=== PATIENT | female | born 1950 | race Caucasian/White ===

== ENCOUNTER 2019-05-29 18:01 | Inpatient (IN) | payer MEDICARE ==
--- NOTE | 2019-05-29 21:15 | ED ---
Lower Extremity - HPI Summary HPI Summary: Patient complains of left lower extremity numbness and difficulty ambulation 2 weeks, right-sided cheek numbness 2 weeks, and "sores" to left breast 1 year. Denies fever, cough, sore throat, CP, SOB, N/3/D, abdominal pain, change in urine, change in BM. Patient has not seen PCP in 4 years, denies medical history. - History of Current Complaint Chief Complaint: EDGeneral Stated Complaint: NUMBNESS ON RT SIDE FACE AND BOTH LEGS PER PT Time Seen by Provider: 05/29/19 21:13 Hx Obtained From: Patient Mechanism Of Injury: Unknown Onset/Duration: Weeks Severity Initially: Severe Severity Currently: Severe Pain Intensity: 8 Pain Scale Used: 0-10 Numeric Timing: Constant Location: Is Discrete @ Character Of Pain: Dull, Aching Associated Signs And Symptoms: Positive: Negative Aggravating Factor(s): Standing, Ambulation Able to Bear Weight: Yes - Allergies/Home Medications Allergies/Adverse Reactions: Allergies Allergy/AdvReac Type Severity Reaction Status Date / Time Penicillins Allergy GI Upset Verified 05/29/19 18:07 PMH/Surg Hx/FS Hx/Imm Hx Endocrine/Hematology History: Denies: Hx Anticoagulant Therapy Cardiovascular History: Denies: Hx Pacemaker/ICD History: Denies: Hx Dialysis Sensory History: Denies: Hx Eye Prosthesis Opthamlomology History: Denies: Hx Legally Blind EENT History: Denies: Hx Deafness Neurological History: Denies: Hx Dementia Infectious Disease History: No Infectious Disease History: Denies: Traveled Outside the [place] in Last 30 Days - Family History Known Family History: Positive: Non-Contributory - Social History Alcohol Use: Occasionally Hx Substance Use: No Hx Tobacco Use: No Review of Systems Constitutional: Negative Eyes: Negative ENT: Negative Cardiovascular: Negative Respiratory: Negative Gastrointestinal: Negative Genitourinary: Negative Musculoskeletal: Other Skin: Other Positive: Weakness Psychological: Normal All Other Systems Reviewed And Are Negative: Yes Physical Exam - Summary Physical Exam Summary: Patient has week use of left lower extremity when ambulating. Decreased sensation on right cheek. Left breast as inverted nipple with extensive deformity of left breast tissue. Hard mass noted. Patient is weak in bilateral lower extremities, Neuro exam otherwise normal. Triage Information Reviewed: Yes Vital Signs On Initial Exam: Initial Vitals Temp Pulse Resp BP Pulse Ox 98.7 F 88 16 143/93 98 05/29/19 18:05 05/29/19 18:05 05/29/19 18:05 05/29/19 18:05 05/29/19 18:05 Vital Signs Reviewed: Yes Appearance: Positive: Well-Appearing Skin: Positive: Warm Head/Face: Positive: Normal Head/Face Inspection Eyes: Positive: Normal Neck: Positive: Supple Respiratory/Lung Sounds: Positive: Clear to Auscultation Cardiovascular: Positive: Normal Abdomen Description: Positive: Nontender Musculoskeletal: Positive: Normal Neurological: Positive: Normal Psychiatric: Positive: Normal AVPU Assessment: Alert - Angela Coma Scale Best Eye Response: 4 - Spontaneous Best Motor Response: 6 - Obeys Commands Best Verbal Response: 5 - Oriented Coma Scale Total: 15 Procedures - Sedation Patient Received Moderate/Deep Sedation with Procedure: No Diagnostics - Vital Signs Vital Signs Temp Pulse Resp BP Pulse Ox 05/29/19 20:44 98.3 F 78 18 109/71 98 05/29/19 18:05 98.7 F 88 16 143/93 98 - Laboratory Result Diagrams: 05/29/19 21:33 05/29/19 21:33 Lab Statement: Any lab studies that have been ordered have been reviewed, and results considered in the medical decision making process. Lower Extremity Course/Dx - Course Course Of Treatment: Patient complains of left lower extremity numbness and difficulty ambulation 2 weeks, right-sided cheek numbness 2 weeks, and "sores " to left breast 1 year. Denies fever, cough, sore throat, CP, SOB, N/3/D, abdominal pain, change in urine, change in BM. Patient has not seen PCP in 4 years, denies medical history. Vital signs within normal limits. Labs unremarkable. CT brain positive for lesion with central area of hyperdensity likely hemorrhage measuring 22 x 22 mm with surrounding vasogenic edema extending to the left occipital parietal and temporal lobes with mass effect on the posterior left ventricle with minimal 1 mm midline shift to the right likely representing primary versus secondary neoplastic process versus infection , and less likely infarct. Further evaluation with contrast-enhanced MR examination as recommended. CT chest abdomen and pelvis positive for a large mass with irregular margins and retraction of the nipple with surrounding skin thickness and multiple other small nodular densities surrounding the mass punctate focus of calcification within the mass. Lesion measures approximately 6.3 x 6.8 x 8.0 cm. Multiple left axillary enlarged lymph nodes, largest one is measuring about 3.02.0. Discussed patient with oncology Dr. Slade who recommended admission and further evaluation. - Diagnoses Provider Diagnoses: Brain edema, Breast lesion, Brain lesion, Liver lesion Discharge ED - Sign-Out/Discharge Documenting (check all that apply): Patient Departure - Discharge Plan Condition: Stable Disposition: ADMITTED TO [facility] Referrals: No Primary Care Phys,NOPCP [Primary Care Provider] - - Billing Disposition and Condition Condition: STABLE Disposition: Admitted to [facility]
[2019-05-29 21:43] LABS: ABS Basophils 0.1 10^3/ul (0-0.2); ABS Eosinophils 0.2 10^3/ul (0-0.6); ABS Lymphocytes 1.2 10^3/ul (1.0-4.8); ABS Monocytes 0.8 10^3/ul (0-0.8); ABS Neutrophils 6.5 10^3/ul (1.5-7.7); Eosinophil % 2.1 %; Hematocrit 44 % (35-47); Hemoglobin 14.7 g/dL (12.0-16.0); Lymphocyte % 14.1 %; Mean Corpuscular HGB Conc 34 g/dL (31-36); Mean Corpuscular Hemoglobin 28 pg (27-31); Mean Corpuscular Volume 84 fL (80-97); Mean Platelet Volume 8.4 fL (7.4-10.4); Platelet Count 253 10^3/uL (150-450); Red Cell Distribution Width 15 % (10-15); White Blood Count 8.8 10^3/uL (3.5-10.8)
[2019-05-29 21:49] LABS: INR 1.06 (0.82-1.09)
[2019-05-29 22:05] LABS: Albumin 4.4 g/dL (3.2-5.2); Albumin/Globulin Ratio 1.9 (1-3); BUN/Creatinine Ratio 21.7 (8-20); C Reactive Protein 2.81 mg/L (<8.01); Calcium 9.7 mg/dL (8.6-10.3); EGFR African American 82.2 (>60); Globulin 2.3 g/dL (2-4); Magnesium 2.3 mg/dL (1.9-2.7); Total Bilirubin 0.6 mg/dL (0.2-1.0); Total Protein 6.7 g/dL (6.4-8.9)
[2019-05-29 22:16] LABS: TSH (Thyroid Stimulating Horm) 1.33 mcIU/mL (0.34-5.60)
[2019-05-29] MEDS ORDERED: Iohexol 300* (CONTRAST) 10 ML SDV IV ONE (22:18)
[2019-05-29] MEDS ORDERED: Dexamethasone IV* 4 MG/ML 5 ML VIAL (20 MG) IVPB ONE (23:50)
[2019-05-30] MEDS ORDERED: Enoxaparin(*) 40 MG/0.4 ML SYR SUBCUT SCH (05:00)
[2019-05-30 05:26] LABS: Urine Appearance Clear; Urine Bilirubin Negative (Negative); Urine Blood Negative (Negative); Urine Color Yellow; Urine Glucose Negative (Negative); Urine Ketones Trace (Negative); Urine Nitrite Negative (Negative); Urine Protein Negative (Negative); Urine Specific Gravity > 1.060 (1.010-1.030); Urine Urobilinogen Negative (Negative)
[2019-05-30 05:28] LABS: Urine Bacteria Absent (Absent); Urine Red Blood Cell Absent (Absent); Urine Squamous Epithelial Cell Present (Absent); Urine White Blood Cell Trace(0-5/hpf) (Absent)
[2019-05-30] MEDS: Dexamethasone IV* 4 MG/ML 1 ML (4 MG) IV SLOW PU SCH ×4 (06:49→23:44)
[2019-05-30] MEDS: NS 0.9% 1000 ML** 1,000 ML IV SCH ×2 (06:49→23:50)
--- NOTE | 2019-05-30 07:35 | HP ---
ADMISSION HISTORY AND PHYSICAL: DATE OF ADMISSION: 05/30/19 CHIEF COMPLAINT: Weakness and numbness. HISTORY OF PRESENT ILLNESS: This is a 68-year-old female who has not been to a doctor in over 3 years, who lives by herself, and for the last 1 year, she has noticed left breast redness which increased to a necrotic lesion, but she did not think much of it even though she felt that her left breast was a bit warm, but that was not the reason for coming to the ER. She stated for the last few weeks she has had numbness and severe pain on both lower extremity with pain being worse on the left lower extremity. She has also felt that her gait was unsteady and her right leg would not move properly and she also noticed some numbness at the right side of the face, and based on these neurological symptoms , she finally decided to come to the ER for further evaluation. She otherwise denies any other vision changes. Denies any chest pain, abdominal pain, nausea, vomiting, or diarrhea. No fever or chills. PAST MEDICAL HISTORY: She denies any medical problems or any previous surgical conditions. HOME MEDICATIONS: The patient is currently not taking any medications. ALLERGIES: The patient is documented to have allergies to PENICILLIN, which causes upset stomach. FAMILY HISTORY: Noncontributory at this point. SOCIAL HISTORY: She denied any smoking. She has had occasional alcohol. Denies any drug use. 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 Her next-of-kin is her sister, Trang, who is also the healthcare proxy and regarding code status she is considering to be a DNR, but does not want to finish writing a MOLST form until she discusses with her sister Trang. REVIEW OF SYSTEMS: A 14-point review of systems did not reveal any new information other than what is mentioned in the HPI. PHYSICAL EXAMINATION GENERAL: The patient is awake, alert, and oriented x3, did not appear to be in any acute respiratory distress. VITAL SIGNS: In the ER, BP was noted to be 110/58, heart rate 71, respiration rate 18, saturating 98% on room air, temperature 98 degrees Fahrenheit. HEAD AND NECK: Atraumatic, normocephalic. Bilateral pupils are reactive. Oral mucosa was moist. Neck: Supple. No jugular venous distention. LUNGS: Clear to auscultation bilaterally. No wheezing, rhonchi, or rales. HEART: S1, S2. Regular rate and rhythm. BREASTS: The patient's right breast appeared to be unremarkable, but the left breast was indurated with a large ulceration and retraction of nipple and some purulent-appearing liquid around the inflammatory changes and the necrotic area was noted on the left breast. ABDOMEN: Soft, nontender, nondistended. EXTREMITIES: The patient did have some tenderness on the left lower extremity. NEUROLOGICAL: The patient was able to move all 4 extremities with the exception of the right lower extremity. She was having difficulty coordinating and moving that extremity. DIAGNOSTIC STUDIES/LAB DATA: CBC was unremarkable. Coagulation profile unremarkable. Comprehensive metabolic panel unremarkable. Lactic acid normal. LFTs normal. TSH was normal. CT brain was read as a lesion in the central area of hyperdensity likely hemorrhage measuring 22 x 22 mm with surrounding vasogenic edema extending into the left occipitoparietal and temporal lobes with mass effect on the posterior left ventricle with minimal 1-mm midline shift to the right likely representing primary versus secondary neoplastic process versus infection and less likely infarct. Further evaluation with a contrast-enhanced MRI is recommended. CT chest showed a large mass with irregular margins and retractions of the nipple with surrounding skin thickness and multiple other small nodular densities surrounding the mass, punctate focus of calcification within the mass. Lesion measures 6.3 x 6.8 x 8.0 cm. Multiple left axillary enlarged lymph nodes, largest one measuring [address] abdomen and pelvis showed 4-mm low-attenuation area in the left lobe of the liver, too small to characterize. Followup is recommended given metastatic disease. Large exophytic mass arising from the uterus most likely represents a fibroid. IMPRESSION: This is a 68-year-old female with no significant past medical history, who has symptoms consistent with an inflammatory breast cancer for over a year, now came in with neurological symptoms including weakness and numbness, noted to have some vasogenic edema and central area of hyperdensity in the brain, considered to be a hemorrhage secondary to a mass, likely all from breast cancer. ASSESSMENT: 1. Weakness and numbness secondary to brain metastasis from a breast cancer with vasogenic edema. For now, we will start the patient on dexamethasone to decrease the vasogenic edema. We will get physical therapy evaluation and consult Oncology to prognosticate the patient. The patient herself seems to be more interested in discussing her case with palliative care doctor. She was requesting to speak with Dr. Ida Velasco, apparently a local palliative care and hospice physician, who is close to retiring and she wanted the doctor before her shelter becomes official as she is considering the route of palliation, but she still is open to discussing her prognosis with an oncologist. 2. DVT prophylaxis. Given her lower extremity pain, an SCD would be contraindicated and the fact that she had hyperdensities thought to be hemorrhagic in the brain, Lovenox would be contraindicated as well. 3. Code status. The patient is considering signing a MOLST form with the idea of being DNR, but she wanted to wait until she discusses her case with the sister. For now she still wants to be DNR, but is waiting on the sister to sign the actual papers. So, we will reevaluate the code status in the morning, healthcare proxy being her sister Trang. [id number]/[facility] #: [id number] DERIC
[2019-05-30] MEDS ORDERED: Morphine INJ* 2 MG/ML 1 ML SYRINGE (TWO MG - NEW SYRINGE VERSION) IV ONE (08:00)
[2019-05-30] MEDS ORDERED: Gadoteridol* (CONTRAST) 279.3 MG/ML 10 ML IV ONE (12:33)
--- NOTE | 2019-05-30 14:38 | CONSULT ---
Consultation - Reason for Consultation Reason for Consultation: likely metastatic breast cancer Ordering Provider: Heraclio Marroquin Chief Complaint: 68 yo F without medical history, but also isolated from medical care with likely metastatic breast cancer. Ashley first noticed a nodule in her left breast 3 years ago. 2 years ago she fell and hit her breast and the nodule "broke open". It has continued to grow and ulcerate. It is not particularly painful nor malodorous and she did not want to "put anyone out" with her health issues and so she continued to ignore it. 2-3 weeks ago she began noticing trouble lifting her right leg as easily over her bike. Over the last week or two her gait became unsteady. Finally she started developing left buttock and facial numbness prompting her to come to the ER. She does report some lower back apin but not severe. Here she had CT head with large left temporal lobe lesion. She was started on IV dexamethasone and admitted for further evaluation. CT C/A/P did not reveal any lung lesions, left breast mass and associated axillary adenopathy, a 4 mm liver nodule, and a fibroid uterus. She reports poor appetite over the last several weeks but no clear weight loss. She has a son that she is estranged from and a sister who lives 1 hour away. She denies bowel or bladder incontinence. Allergies/Medications Medication: Dexamethasone Sodium Phosphate (Decadron Iv*) 4 mg IV SLOW PU Q6H [facility] Last Admin: 05/30/19 13:31 Dose: 4 mg Sodium Chloride (Ns 0.9% 1000 Ml) 1,000 mls @ 125 mls/hr IV PER RATE [facility] Last Admin: 05/30/19 06:49 Dose: 125 mls/hr Allergies/Adverse Reactions: Allergies Allergy/AdvReac Type Severity Reaction Status Date / Time Penicillins Allergy GI Upset Verified 05/29/19 18:07 History - Past Medical History Other History: denies PMH or prior sugeries - Family History Other Family History: denies - Social History Hx Alcohol Use: No Hx Tobacco Use: No Marital Status: Single Review of Systems - Review of Systems General Comments: full 14 pt ROS remarkable as per HPI and otherwise negative. Physical Exam - Physical Exam Physical Examination: Vital Signs Temp Pulse Resp BP Pulse Ox 98 F 65 18 136/67 98 05/30/19 05:40 05/30/19 05:40 05/30/19 10:38 05/30/19 05:40 05/30/19 05:40 pleasant, lying flat, in nad perr eomi op moist cta bl s1 s2 nl soft nt +Bs trace LE edema large fungating left breast mass with satellite skin lesions +left axillary adenopathy 2+/5 RLE. 4/5 LLE strength, did not ambulate Results - Lab Results Lab Results: 05/29/19 05/29/19 05/29/19 21:33 21:33 21:33 WBC 8.8 RBC 5.20 H Hgb 14.7 Hct 44 MCV 84 MCH 28 MCHC 34 RDW 15 Plt Count 253 MPV 8.4 Neut % (Auto) 73.7 Lymph % (Auto) 14.1 [place] % (Auto) 9.0 Eos % (Auto) 2.1 Baso % (Auto) 1.1 Absolute Neuts (auto) 6.5 Absolute Lymphs (auto) 1.2 Absolute Monos (auto) 0.8 Absolute Eos (auto) 0.2 Absolute Basos (auto) 0.1 Absolute Nucleated RBC 0.0 Nucleated RBC % 0.0 INR (Anticoag Therapy) 1.06 Sodium 137 Potassium 4.0 Chloride 102 Carbon Dioxide 26 Anion Gap 9 BUN 18 Creatinine 0.83 Est GFR ( Amer) 82.2 Est GFR (Non-Af Amer) 68.0 BUN/Creatinine Ratio 21.7 H Glucose 96 Lactic Acid Calcium 9.7 Magnesium 2.3 Total Bilirubin 0.60 AST 35 ALT 30 Alkaline Phosphatase 50 C-Reactive Protein 2.81 Total Protein 6.7 Albumin 4.4 Globulin 2.3 Albumin/Globulin Ratio 1.9 TSH 1.33 Urine Color Urine Appearance Urine pH Ur Specific [place] Urine Protein Urine Ketones Urine Blood Urine Nitrate Urine Bilirubin Urine Urobilinogen Ur Leukocyte Esterase Urine WBC (Auto) Urine RBC (Auto) Ur Squamous Epith Cells Urine Bacteria Urine Glucose 05/29/19 05/30/19 21:33 04:50 WBC RBC Hgb Hct MCV MCH MCHC RDW Plt Count MPV Neut % (Auto) Lymph % (Auto) [place] % (Auto) Eos % (Auto) Baso % (Auto) Absolute Neuts (auto) Absolute Lymphs (auto) Absolute Monos (auto) Absolute Eos (auto) Absolute Basos (auto) Absolute Nucleated RBC Nucleated RBC % INR (Anticoag Therapy) Sodium Potassium Chloride Carbon Dioxide Anion Gap BUN Creatinine Est GFR ( Amer) Est GFR (Non-Af Amer) BUN/Creatinine Ratio Glucose Lactic Acid 0.8 Calcium Magnesium Total Bilirubin AST ALT Alkaline Phosphatase C-Reactive Protein Total Protein Albumin Globulin Albumin/Globulin Ratio TSH Urine Color Yellow Urine Appearance Clear Urine pH 5.0 Ur Specific [place] > 1.060 H Urine Protein Negative Urine Ketones Trace A Urine Blood Negative Urine Nitrate Negative Urine Bilirubin Negative Urine Urobilinogen Negative Ur Leukocyte Esterase Trace A Urine WBC (Auto) Trace(0-5/hpf) Urine RBC (Auto) Absent Ur Squamous Epith Cells Present A Urine Bacteria Absent Urine Glucose Negative Assessment and Plan Impression: 68 yo F who has secluded herself from health care with a large, fungating breast mass growing over several years p/w right sided weakness, and left buttock numbness and found to have a OVERHAULER lesion concerning for metastatic disease. On exam I am also concerned for cord compression and have taken the liberty of ordering a stat brain MRI as well as thoracic and LS spines. I have discussed this with Ashley at length. Though she does take a minimalist approach overall to her health care,she is very interested in palliative therapy , and would be willing to entertain other therapies (like hormonal) if the goal was palliation. I have asked Dr. Robin to come do a bedside FNA of her breast to expidite her diagnosis and care, and have reviewed her case with Dr. Arita given her neurological compromise. She has specifically requested to discuss with Dr. Velasco palliative options and I have placed a call to her. -please continue steroids as you are doing we will continue to follow closely with you.
--- NOTE | 2019-05-30 22:40 | RADMED ---
CC: Dr. Sousa's office at [facility].* RADIATION ONCOLOGY INPATIENT CONSULTATION NOTE: DATE OF SERVICE: 05/30/19. DIAGNOSIS: Metastatic breast cancer AJCC stage IV. Performance status ECOG 3. REFERRING PHYSICIAN: Dr. Sousa. HISTORY OF PRESENT ILLNESS: Ashley Arreguin is a 68-year-old woman with a history of increasing left breast irregularity fungating mass over the past couple of years. She developed low back pain recently, which increased to leg weakness, leading her to come to medical attention. She was evaluated through the [facility] emergency department with MRI scan of the brain on 10/12 identifying large left sided in the left temporal occipital parietal region with mass effect. Fine needle aspiration of the left breast performed today, 05/30/19 confirms intermediate to high grade ductal adenocarcinoma. MRI of the brain also 05/30/19, further characterizes the large left-sided brain metastasis with invasion to the cerebellar vermis and suggestion of leptomeningeal dissemination as well as an additional right temporal metastasis around 1 cm. Lumbar spine MRI shows studding along the cauda equina. She is referred for emergent radiation oncology consultation for newly diagnosed metastatic breast cancer. PAST MEDICAL HISTORY: None reported. MEDICATIONS: At home, none. ALLERGIES: PENICILLIN. FAMILY HISTORY: Noncontributory. SOCIAL HISTORY: She is a nonsmoker. REVIEW OF SYSTEMS: As in the history of present illness, otherwise complete review of systems is asked to the patient without the additional significant findings. PHYSICAL EXAM: General: She is awake, alert, oriented, and in no acute distress. Vital Signs: Temperature 97.9, pulse rate 70, respiratory rate 18, oxygen saturation 94% on room air, blood pressure 149/78. HEENT: Normocephalic atraumatic, sclerae anicteric. Neck: Supple. Full range of motion, midline trachea. No masses palpable in the neck or thyroid. Lungs: With symmetric air entry bilaterally. Cardiovascular: S1, S2. Breasts: Irregular mass over the left breast fungating. Neurologic: Cranial nerves: Pupils equal, round and reactive to light. Extraocular movements intact. Facies appear symmetric. Sensation is diminished in the lower extremities. Global weakness, more pronounced in the lower extremities, right greater than left. PATHOLOGY AND RADIOLOGY: Reviewed, as in the history of present illness. 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 She has been started on dexamethasone, and I reviewed the logistics and rationale for consideration of an emergent palliative radiation therapy to the whole brain and lumbosacral spine. I explained the risks, benefits and alternatives for treatment as well as the acute and long-term frequent and uncommon toxicities. I did answer the patient's questions to the best of my ability. 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 She is inclined to proceed with radiation therapy as discussed, and did sign informed consent. She will undergo CT simulation to facilitate treatment planning. For her situation, I recommended 3000 cGy per fraction to the whole brain and lumbosacral spine, tentative treatment start date today, 05/30/19. Thank you for giving me the opportunity to participate in the care of this very pleasant patient. [id number]/[facility] #: [id number] MTDD
[2019-05-30] MEDS ORDERED: Acetaminophen ADULT LIQ* 650 MG/20.3 ML UDC PO PRN (22:44)
[2019-05-30] MEDS: traMADol TAB* 50 MG PO PRN (23:44)
[2019-05-31 05:43] LABS: ABS Lymphocytes 0.6 10^3/ul (1.0-4.8); ABS Monocytes 0.5 10^3/ul (0-0.8); ABS Neutrophils 12.3 10^3/ul (1.5-7.7); Hematocrit 39 % (35-47); Hemoglobin 13.1 g/dL (12.0-16.0); Lymphocyte % 4.1 %; Mean Corpuscular HGB Conc 33 g/dL (31-36); Mean Corpuscular Hemoglobin 28 pg (27-31); Mean Corpuscular Volume 84 fL (80-97); Mean Platelet Volume 8.9 fL (7.4-10.4); Platelet Count 237 10^3/uL (150-450); Red Blood Count 4.68 10^6 /uL (3.70-4.87); Red Cell Distribution Width 15 % (10-15); White Blood Count 13.3 10^3/uL (3.5-10.8)
[2019-05-31 06:06] LABS: Calcium 8.7 mg/dL (8.6-10.3); EGFR Non-African American 91.7 (>60); Potassium 4.1 mmol/L (3.5-5.0)
[2019-05-31] MEDS: Dexamethasone IV* 4 MG/ML 1 ML (4 MG) IV SLOW PU SCH ×3 (06:21→17:05)
--- NOTE | 2019-05-31 10:28 | CONSULT ---
Palliative / Hospice Consult Ordering Provider: Magda Sousa - Subjective Code Status: DNR Advance Directives Location: In Chart [facility] Part A Completed: Yes - [facility]:: Yes - all comfort/palliative measures HCP Completed: Yes - sister Trang Ly - History or Present Illness History or Present Illness: This 68 year old woman has had a palpable left breast mass growing for 3 years, and has noted progressive fatigue for at least 2 years, but has been reluctant to pursue any medical care. She has, however, been pursuing information and education about palliative interventions. She presented to the hospital when she had developed symptoms that needed alleviation. She has had numbness and pain in her legs, an unsteady gait, right leg numbness and right facial numbness progressing over the past few weeks. In the ER she was found to have a fungating 6.3 x 6.8 x 8 cm left breast mass with purulent discharge and surrounding nidular dinsities, and brain MRI revealed a 2.2 x 2.2 cm temporal occipital parietal mass on the left, with 1 cm midline shift to the right due to mass effect, and a 1 cm right temporal mass as well. Lumbar MRI revealed studding along the cauda equina. She has no significant intraabdominal findings. She was seen in consultation by Dr. Magda Sousa who reviewed the patient's options and suggested palliative consultation after FNA of the mass revealed a ductal adenocarcinoma, and Dr. Arita has initiated palliative radiation to the brain and lower spine, which the patient says will continue for about 10 days. She is currently not able to ambulate safely due to her right hemiplegia and incoordination. She also admits to some memory impairment and confusion. She reports that after initiation of dexamethasone and her first radiation treatment yesterday, her facial numbness seems somewhat alleviated. However, she still reports significant pain which has been only partly relieved with 50 mg tramadol. The patient lives alone in a mobile home near [place]. She has a sister, Trang Ly, who is her HCP and POA. She has 2 brothers with whom she is not close, one of which, in [place], has had treatment for prostate cancer. Her parents of cardiac disease, mother age 90 and father age 97. She has adequate savings to cover prolonged [facility]cc care. Lab Values: Abnormal Lab Results 05/31/19 05/31/19 04:30 04:41 WBC 13.3 H RBC 4.68 Hgb 13.1 Hct 39 MCV 84 MCH 28 MCHC 33 RDW 15 Plt Count 237 MPV 8.9 Neut % (Auto) 92.1 Lymph % (Auto) 4.1 Sac % (Auto) 3.8 Eos % (Auto) 0.0 Baso % (Auto) 0.0 Absolute Neuts (auto) 12.3 H Absolute Lymphs (auto) 0.6 L Absolute Monos (auto) 0.5 Absolute Eos (auto) 0.0 Absolute Basos (auto) 0.0 Absolute Nucleated RBC 0.0 Nucleated RBC % 0.0 Sodium 138 Potassium 4.1 Chloride 107 Carbon Dioxide 25 Anion Gap 6 BUN 16 Creatinine 0.64 Est GFR ( Amer) 111.0 Est GFR (Non-Af Amer) 91.7 BUN/Creatinine Ratio 25.0 H Glucose 122 H Calcium 8.7 Laboratory Last Values WBC 13.3 10^3/uL (3.5-10.8) H 05/31/19 04:30 RBC 4.68 10^6 /uL (3.70-4.87) 05/31/19 04:30 Hgb 13.1 g/dL (12.0-16.0) 05/31/19 04:30 Hct 39 % (35-47) 05/31/19 04:30 MCV 84 fL (80-97) 05/31/19 04:30 MCH 28 pg (27-31) 05/31/19 04:30 MCHC 33 g/dL (31-36) 05/31/19 04:30 RDW 15 % (10-15) 05/31/19 04:30 Plt Count 237 10^3/uL (150-450) 05/31/19 04:30 MPV 8.9 fL (7.4-10.4) 05/31/19 04:30 Neut % (Auto) 92.1 % 05/31/19 04:30 Lymph % (Auto) 4.1 % 05/31/19 04:30 Sac % (Auto) 3.8 % 05/31/19 04:30 Eos % (Auto) 0.0 % 05/31/19 04:30 Baso % (Auto) 0.0 % 05/31/19 04:30 Absolute Neuts (auto) 12.3 10^3/ul (1.5-7.7) H 05/31/19 04:30 Absolute Lymphs (auto) 0.6 10^3/ul (1.0-4.8) L 05/31/19 04:30 Absolute Monos (auto) 0.5 10^3/ul (0-0.8) 05/31/19 04:30 Absolute Eos (auto) 0.0 10^3/ul (0-0.6) 05/31/19 04:30 Absolute Basos (auto) 0.0 10^3/ul (0-0.2) 05/31/19 04:30 Absolute Nucleated RBC 0.0 10^3/ul 05/31/19 04:30 Nucleated RBC % 0.0 05/31/19 04:30 INR (Anticoag Therapy) 1.06 (0.82-1.09) 05/29/19 21:33 Sodium 138 mmol/L (135-145) 05/31/19 04:41 Potassium 4.1 mmol/L (3.5-5.0) 05/31/19 04:41 Chloride 107 mmol/L (101-111) 05/31/19 04:41 Carbon Dioxide 25 mmol/L (22-32) 05/31/19 04:41 Anion Gap 6 mmol/L (2-11) 05/31/19 04:41 BUN 16 mg/dL (6-24) 05/31/19 04:41 Creatinine 0.64 mg/dL (0.51-0.95) 05/31/19 04:41 Est GFR ( Amer) 111.0 (>60) 05/31/19 04:41 Est GFR (Non-Af Amer) 91.7 (>60) 05/31/19 04:41 BUN/Creatinine Ratio 25.0 (8-20) H 05/31/19 04:41 Glucose 122 mg/dL (70-100) H 05/31/19 04:41 Lactic Acid 0.8 mmol/L (0.5-2.0) 05/29/19 21:33 Calcium 8.7 mg/dL (8.6-10.3) 05/31/19 04:41 Magnesium 2.3 mg/dL (1.9-2.7) 05/29/19 21:33 Total Bilirubin 0.60 mg/dL (0.2-1.0) 05/29/19 21:33 AST 35 U/L (13-39) 05/29/19 21:33 ALT 30 U/L (7-52) 05/29/19 21:33 Alkaline Phosphatase 50 U/L (34-104) 05/29/19 21:33 C-Reactive Protein 2.81 mg/L (<8.01) 05/29/19 21:33 Total Protein 6.7 g/dL (6.4-8.9) 05/29/19 21:33 Albumin 4.4 g/dL (3.2-5.2) 05/29/19 21:33 Globulin 2.3 g/dL (2-4) 05/29/19 21:33 Albumin/Globulin Ratio 1.9 (1-3) 05/29/19 21:33 TSH 1.33 mcIU/mL (0.34-5.60) 05/29/19 21:33 Urine Color Yellow 05/30/19 04:50 Urine Appearance Clear 05/30/19 04:50 Urine pH 5.0 (5-9) 05/30/19 04:50 Ur Specific Icard > 1.060 (1.010-1.030) H 05/30/19 04:50 Urine Protein Negative (Negative) 05/30/19 04:50 Urine Ketones Trace (Negative) A 05/30/19 04:50 Urine Blood Negative (Negative) 05/30/19 04:50 Urine Nitrate Negative (Negative) 05/30/19 04:50 Urine Bilirubin Negative (Negative) 05/30/19 04:50 Urine Urobilinogen Negative (Negative) 05/30/19 04:50 Ur Leukocyte Esterase Trace (Negative) A 05/30/19 04:50 Urine WBC (Auto) Trace(0-5/hpf) (Absent) 05/30/19 04:50 Urine RBC (Auto) Absent (Absent) 05/30/19 04:50 Ur Squamous Epith Cells Present (Absent) A 05/30/19 04:50 Urine Bacteria Absent (Absent) 05/30/19 04:50 Urine Glucose Negative (Negative) 05/30/19 04:50 - Objective Active Medications: Acetaminophen (Tylenol Adult Liq*) 650 mg PO Q6H PRN PRN Reason: PAIN - MILD Dexamethasone Sodium Phosphate (Decadron Iv*) 4 mg IV SLOW PU Q6H [facility] Last Admin: 05/31/19 06:21 Dose: 4 mg Sodium Chloride (Ns 0.9% 1000 Ml) 1,000 mls @ 125 mls/hr IV PER RATE [facility] Last Admin: 05/30/19 23:50 Dose: 125 mls/hr Tramadol HCl (Ultram*) 50 mg PO Q6H PRN PRN Reason: PAIN - MODERATE Last Admin: 05/30/19 23:44 Dose: 50 mg Vital Signs: Vital Signs: Temp Pulse Resp BP Pulse Ox 98.1 F 69 20 137/62 93 05/31/19 07:15 05/31/19 07:15 05/31/19 07:15 05/31/19 07:15 05/31/19 07:15 Patient Weight: Weight 218 lb Intake and Output: Intake & Output 05/29/19 05/30/19 05/31/19 06/01/19 06:59 06:59 06:59 06:59 Intake Total 1973 Balance 1973 Weight 218 lb Intake: IV Fluids 1733 NS (0.9%) 1733 Oral 240 ADLs: Meal Record Start: 05/30/19 06: 16 Freq: DAILY@0900,1400,1800 Status: Active Protocol: Created 05/30/19 06:16 System (Rec: 05/30/19 06:16 System [id number]) Document 05/30/19 14:00 [id number] (Rec: 05/30/19 15:03 [id number] [id number]) Intake and Output Start: 05/29/19 18: 07 Freq: Status: Active Protocol: Created 05/29/19 18:07 System (Rec: 05/29/19 18:07 System [id number]) Intake and Output Start: 05/30/19 06: 16 Freq: DAILY@0600,1400,2200 Status: Active Protocol: Created 05/30/19 06:16 System (Rec: 05/30/19 06:16 System [email or web address]) Document 05/30/19 14:00 [id number] (Rec: 05/30/19 15:03 [id number] [email or web address]) Document 05/30/19 22:00 [id number] (Rec: 05/30/19 22:31 [id number] [email or web address]) Document 05/31/19 06:00 [id number] (Rec: 05/31/19 06:18 [id number] TELE-C13) Head: Symmetrical Eyes: No Scleral Icterus, PERRLA Ears/Nose/Mouth/Throat: NL Teeth, Lips, Gums Neck: NL Appearance and Movements; NL JVP, Trachea Midline Cardiovascular: NL Sounds; No Murmurs; No JVD Respiratory: Symmetrical Chest Expansion and Respiratory Effort Abdominal: NL Sounds; No Tenderness; No Distention, No Hepatosplenomegaly Extremities: No Clubbing, Cyanosis, - - 1-2 + pitting edema. Neurological: Alert and Oriented x 3 - Noticeable weakness right LE, DTR's symmetrical and intact, paresthesias bilat. 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 She has terminal disease and is aware that any measures would be non-curative. We had a long discussion about her goals of care, and she wishes above all else to maintain independence and maximal functional status during the time she has left. The radiation is a very reasonable course to attempt to maximize the function of her legs and to minimize her symptoms, and provide the best chance of continued ability to ambulate. The dexamethasone is also important to continue, and I spoke with Dr. Sousa who accepts the patient's desire to avoid conventional chemotherapy but would like to consider aromatase therapy if her hormone receptor assays suggest that she might benefit from it. Her main symptoms at this time are fatigue and pain. I note she has only had one dose of 50 mg tramadol here, and her pain is not maximally relieved. We attempt to keep pain levels at or less than 4/10. I will initiate a routine order for oxycodone ( especially since this a patient who is reluctant to "bother" people with requests) and this should be titrated upward as needed to control her pain. - Plan Consult Plan (MU): Hospice Plan: The patient and I completed a MOLST form, specifying palliative and comfort measures only. When the patient's course of radiation has been completed, she would like to be transferred to the [facility]. This is an environment with which she is familiar and quite enamored. I am hoping a bed will be available for her at the time that she is ready for discharge. With the patient' s consent, I called her HCP and POATrang, and updated her on the clinical situation and the patient's wishes for end-of-life care. She qualifies for hospice services on the basis of her metastatic ductal adenocarcinoma and her neurologic impairment due to brain and cauda equina metastatic disease. - Time On Unit Date of Evaluation: 05/31/19 Hospice Consult Time in: 08:30 Hospice Consult Time Out: 10:30 Hospice Consult Time Total: 120 > 50% of Time Spend In Counseling or Coordinating Care: Yes
[2019-05-31] MEDS: NS 0.9% 1000 ML** 1,000 ML IV SCH (11:14)
[2019-05-31] MEDS: Gabapentin CAP(*) 100 MG PO SCH ×2 (11:22→21:11)
[2019-05-31] MEDS: traMADol TAB* 50 MG PO PRN ×2 (11:23→21:12)
--- NOTE | 2019-05-31 11:46 | PN ---
Progress Note - Progress Note Date of Service: 05/31/19 SOAP: Subjective: [Patient reports that she is feeling a little better today and reassured by her decision to pursue palliative RT. She met with Dr Velasco today regarding palliative care and planning for Hospice. ] Objective: [ Vital Signs: Temp Pulse Resp BP Pulse Ox 98.1 F 69 18 137/62 93 05/31/19 07:15 05/31/19 07:15 05/31/19 11:23 05/31/19 07:15 05/31/19 07:15 Acetaminophen (Tylenol Adult Liq*) 650 mg PO Q6H PRN PRN Reason: PAIN - MILD Dexamethasone Sodium Phosphate (Decadron Iv*) 4 mg IV SLOW PU Q6H [facility] Last Admin: 05/31/19 11:20 Dose: 4 mg Gabapentin (Neurontin Cap(*)) 100 mg PO BID [facility] Last Admin: 05/31/19 11:22 Dose: 100 mg Sodium Chloride (Ns 0.9% 1000 Ml) 1,000 mls @ 125 mls/hr IV PER RATE [facility] Last Admin: 05/31/19 11:14 Dose: 125 mls/hr Oxycodone/Acetaminophen (Percocet 5/325 Tab*) 2 tab PO Q4H PRN PRN Reason: PAIN - SEVERE Tramadol HCl (Ultram*) 50 mg PO Q6H PRN PRN Reason: PAIN - MODERATE Last Admin: 05/31/19 11:23 Dose: 50 mg Laboratory Results - last 24 hr 05/31/19 05/31/19 04:30 04:41 WBC 13.3 H RBC 4.68 Hgb 13.1 Hct 39 MCV 84 MCH 28 MCHC 33 RDW 15 Plt Count 237 MPV 8.9 Neut % (Auto) 92.1 Lymph % (Auto) 4.1 [place] % (Auto) 3.8 Eos % (Auto) 0.0 Baso % (Auto) 0.0 Absolute Neuts (auto) 12.3 H Absolute Lymphs (auto) 0.6 L Absolute Monos (auto) 0.5 Absolute Eos (auto) 0.0 Absolute Basos (auto) 0.0 Absolute Nucleated RBC 0.0 Nucleated RBC % 0.0 Sodium 138 Potassium 4.1 Chloride 107 Carbon Dioxide 25 Anion Gap 6 BUN 16 Creatinine 0.64 Est GFR ( Amer) 111.0 Est GFR (Non-Af Amer) 91.7 BUN/Creatinine Ratio 25.0 H Glucose 122 H Calcium 8.7 Exam: Gen: pleasant and generally well appearing 68 yo female in NAD Resp: easy, unlabored breathing Breast: not examined today] Assessment: [This is a 68 yo female admitted with RLE weakness with a large fungating breast mass, along with a large brain met and drop mets to the cauda equina likely representing metastatic breast CA with biopsy pending.] Plan: [1. Metastatic carcinoma, likely breast in origin - plan to complete 10 fractions of palliative RT to the brain and lumbar spine, today is day 2 - cont dexamethasone - awaiting final pathology results - recommend more aggressive pain management (see Dr Velasco's consultation) Dispo: plan to complete 10 fractions of RT with transition to Hospice residence upon completion. Oncology will continue to follow along and will follow up with patient when final pathology results return.]
[2019-05-31] MEDS: Ondansetron INJ* 2 MG/ML VIAL IV PRN (17:05)
--- NOTE | 2019-05-31 18:00 | PN ---
Subjective Date of Service: 05/31/19 Interval History: HD3 on 05/31 No acute overnight events Vitals stable Patient seen after radiation treatment. Feels nauseous. has pain on her leg but getting better. Objective Active Medications: Acetaminophen (Tylenol Adult Liq*) 650 mg PO Q6H PRN PRN Reason: PAIN - MILD Dexamethasone (Decadron Tab*) 16 mg PO DAILY [facility] Gabapentin (Neurontin Cap(*)) 100 mg PO BID [facility] Last Admin: 05/31/19 11:22 Dose: 100 mg Ondansetron HCl (Zofran Inj*) 4 mg IV Q6H PRN PRN Reason: NAUSEA Last Admin: 05/31/19 17:05 Dose: 4 mg Oxycodone/Acetaminophen (Percocet 5/325 Tab*) 2 tab PO Q4H PRN PRN Reason: PAIN - SEVERE Tramadol HCl (Ultram*) 50 mg PO Q6H PRN PRN Reason: PAIN - MODERATE Last Admin: 05/31/19 11:23 Dose: 50 mg Vital Signs - 8 hr 05/31/19 05/31/19 05/31/19 11:15 11:22 11:23 Temperature 97.9 F Pulse Rate 66 Respiratory 18 18 18 Rate Blood Pressure 161/70 (mmHg) O2 Sat by Pulse 93 Oximetry 05/31/19 05/31/19 13:08 15:15 Temperature 98.4 F Pulse Rate 63 Respiratory 18 20 Rate Blood Pressure 143/72 (mmHg) O2 Sat by Pulse 97 Oximetry Oxygen Devices in Use Now: None Exam: Patient is lying on a bed in supine position and is not in acute dstress. HEENT: Normocephalic and atraumatic. Sclera anicteric. EOMI. PERRLA. Neck: No lymphadenopathy and enlarged thyroid. NO JVD elevation. Breast: large fungating left breast mass with satellite skin lesions-draning mucopururlent discharge, left axillary lymphadenopathy Lungs: Good respiratory effort and chest expansion. Clear with no added sound. Heart: Normal in rate and rhythm. S1/S2 heard with no murmur, rubs or gallops. Abdomen: Soft, nondistended and nontender. Normal BS heard. Extremities; No swelling, cyanosis or clubbing Neuro: Alert, oriented and coperative. CN intact. 2+/5 RLE. 4/5 LLE strength Result Diagrams: 05/31/19 04:30 05/31/19 04:41 Assess/Plan/Problems-Billing Assessment: 68 yo F presented with a large, fungating breast mass growing over several years p/w right sided weakness, and left buttock numbness. found to have left breast ductal adenocarcinoma with metastasis to brain and leptomeninges. ON radiation therapy for 10 days then hospice care. - Patient Problems (1) Breast cancer, left breast Current Visit: Yes Status: Acute Code(s): C50.912 - MALIGNANT NEOPLASM OF UNSPECIFIED SITE OF LEFT FEMALE BREAST SNOMED Code(s): 543124851 Comment: -left breast ductal adenocarcinoma with left axillary lymphadenopathy. -Imaging showing metastasis to brain and meninges. -has LE weakness -She is a minimalist- wants to go for hospice care -Currently undergoing radiation therapy for total of 10 days- day 2 on 05/31 -on dexamethasone -for pain- oxycodone, tramadol, gabapentin. -for nausea- zofran (2) Leucocytosis Current Visit: Yes Status: Acute Code(s): D72.829 - ELEVATED WHITE BLOOD CELL COUNT, UNSPECIFIED SNOMED Code(s): 219463882 Comment: -has fungating mass on left breast with induration and mucopurulent discharge. -consern for infection -we will order wound care and wound culture. (3) DVT prophylaxis Current Visit: Yes Status: Acute Code(s): Z29.9 - ENCOUNTER FOR PROPHYLACTIC MEASURES, UNSPECIFIED SNOMED Code(s): 295503401 Comment: -scd (4) DNR (do not resuscitate) Current Visit: Yes Status: Acute Status and Disposition: Inpatient will go to hospice resident after radiation Attending: Violeta Wick Attestation Documenting Resident: Dax Fields Supervising Physician: Violeta Wick Attestation: This service has been performed in part by a resident under the direction of a teaching physician.I, Violeta Wick, performed the service, or was physically present during the critical, or aldana portions of the service, furnished by the resident. I participated in the management of the patient.
[2019-06-01 06:06] LABS: ABS Lymphocytes 0.7 10^3/ul (1.0-4.8); ABS Monocytes 0.6 10^3/ul (0-0.8); ABS Neutrophils 9.4 10^3/ul (1.5-7.7); Hematocrit 38 % (35-47); Hemoglobin 13.1 g/dL (12.0-16.0); Lymphocyte % 6.1 %; Mean Corpuscular HGB Conc 34 g/dL (31-36); Mean Corpuscular Hemoglobin 29 pg (27-31); Mean Corpuscular Volume 84 fL (80-97); Platelet Count 244 10^3/uL (150-450); Red Blood Count 4.55 10^6 /uL (3.70-4.87); Red Cell Distribution Width 15 % (10-15); White Blood Count 10.7 10^3/uL (3.5-10.8)
[2019-06-01] MEDS: Ondansetron INJ* 2 MG/ML VIAL IV PRN (07:33)
[2019-06-01] MEDS: Gabapentin CAP(*) 100 MG PO SCH ×2 (08:45→21:38)
[2019-06-01] MEDS: traMADol TAB* 50 MG PO PRN ×2 (08:46→21:39)
[2019-06-01] MEDS: Dexamethasone TAB* 4 MG PO SCH (08:46)
--- NOTE | 2019-06-01 12:44 | PN ---
Subjective Date of Service: 06/01/19 Interval History: Hd 4 on 06/01 No acute overnight events Vitals stable Patient is feeling better today. She is happy that she is doing well with physical therapy. She denies feeling nauseous although she is still having mild pain on her legs but is getting better than yesterday. she denies burning or increased frequency of micturition and fever and abdominal pain. Objective Active Medications: Acetaminophen (Tylenol Adult Liq*) 650 mg PO Q6H PRN PRN Reason: PAIN - MILD Dexamethasone (Decadron Tab*) 16 mg PO DAILY [facility] Last Admin: 06/01/19 08:46 Dose: 16 mg Gabapentin (Neurontin Cap(*)) 100 mg PO BID [facility] Last Admin: 06/01/19 08:45 Dose: 100 mg Ondansetron HCl (Zofran Inj*) 4 mg IV Q6H PRN PRN Reason: NAUSEA Last Admin: 06/01/19 07:33 Dose: 4 mg Oxycodone/Acetaminophen (Percocet 5/325 Tab*) 2 tab PO Q4H PRN PRN Reason: PAIN - SEVERE Tramadol HCl (Ultram*) 50 mg PO Q6H PRN PRN Reason: PAIN - MODERATE Last Admin: 06/01/19 08:46 Dose: 50 mg Vital Signs - 8 hr 06/01/19 06/01/19 06/01/19 07:38 07:46 08:45 Temperature 97.6 F Pulse Rate 64 Respiratory 18 16 18 Rate Blood Pressure 140/73 (mmHg) O2 Sat by Pulse 95 Oximetry 06/01/19 08:46 Temperature Pulse Rate Respiratory 18 Rate Blood Pressure (mmHg) O2 Sat by Pulse Oximetry Oxygen Devices in Use Now: None Exam: Patient is lying on a bed in supine position and is not in acute dstress. HEENT: Normocephalic and atraumatic. Sclera anicteric. EOMI. PERRLA. Neck: No lymphadenopathy and enlarged thyroid. NO JVD elevation. Breast: large fungating left breast mass with satellite skin lesions-draning mucopururlent discharge, left axillary lymphadenopathy Lungs: Good respiratory effort and chest expansion. Clear with no added sound. Heart: Normal in rate and rhythm. S1/S2 heard with no murmur, rubs or gallops. Abdomen: Soft, nondistended and nontender. Normal BS heard. Extremities; No swelling, cyanosis or clubbing Neuro: Alert, oriented and coperative. CN intact. 2+/5 RLE. 4/5 LLE strength Result Diagrams: 06/01/19 05:30 05/31/19 04:41 Assess/Plan/Problems-Billing Assessment: 68 yo F presented with a large, fungating breast mass growing over several years p/w right sided weakness, and left buttock numbness. found to have left breast ductal adenocarcinoma with metastasis to brain and leptomeninges. ON radiation therapy for 10 days then hospice care. - Patient Problems (1) Breast cancer, left breast Current Visit: Yes Status: Acute Code(s): C50.912 - MALIGNANT NEOPLASM OF UNSPECIFIED SITE OF LEFT FEMALE BREAST SNOMED Code(s): 880284983 Comment: -left breast ductal adenocarcinoma with left axillary lymphadenopathy. -Imaging showing metastasis to brain and meninges. -has LE weakness -She is a minimalist- wants to go for hospice care -Currently undergoing radiation therapy for total of 10 days- day 2 on 05/31- not available on weekends -on dexamethasone -for pain- oxycodone, tramadol, gabapentin. -for nausea- zofran (2) Leucocytosis Current Visit: Yes Status: Acute Code(s): D72.829 - ELEVATED WHITE BLOOD CELL COUNT, UNSPECIFIED SNOMED Code(s): 505948963 Comment: -resolved without any intervention: could be from dexamethasone -has fungating mass on left breast with induration and mucopurulent discharge. -pending wound culture results (3) Asymptomatic bacteriuria Current Visit: Yes Status: Acute Code(s): R82.71 - BACTERIURIA SNOMED Code (s): 872151518 Comment: -asymptomatic -urine growing klebsiella -no leucocytosis and fever. -monitor for symptoms (4) DVT prophylaxis Current Visit: Yes Status: Acute Code(s): Z29.9 - ENCOUNTER FOR PROPHYLACTIC MEASURES, UNSPECIFIED SNOMED Code(s): 288173178 Comment: -scd (5) DNR (do not resuscitate) Current Visit: Yes Status: Acute Status and Disposition: Inpatient will go to hospice resident after radiation Attending: Violeta Wick Attestation Documenting Resident: Dax Fields Supervising Physician: Violeta Wick Attestation: This service has been performed in part by a resident under the direction of a teaching physician.I, Violeta Wick, performed the service, or was physically present during the critical, or aldana portions of the service, furnished by the resident. I participated in the management of the patient.
[2019-06-02] MEDS: Ondansetron INJ* 2 MG/ML VIAL IV PRN ×2 (08:21→17:34)
[2019-06-02] MEDS: oxyCODONE/Acetamin 5/325 MG* TAB PO PRN ×2 (08:21→17:33)
[2019-06-02] MEDS: Dexamethasone TAB* 4 MG PO SCH (10:34)
[2019-06-02] MEDS: Gabapentin CAP(*) 100 MG PO SCH ×2 (10:34→20:16)
--- NOTE | 2019-06-02 13:30 | PN ---
Subjective Date of Service: 06/02/19 Interval History: No acute events overnight. Patient thinks her LLE is a bit more swollen than before, but also states she had that leg in a dependent position all day yesterday. Encouraged ambulation and elevation. Think steroids could play a role in water retention. Reports pain is well controlled. Ready for radiation tomorrow. Denies other symptoms. Objective Active Medications: Acetaminophen (Tylenol Adult Liq*) 650 mg PO Q6H PRN PRN Reason: PAIN - MILD Dexamethasone (Decadron Tab*) 16 mg PO DAILY [facility] Last Admin: 06/02/19 10:34 Dose: 16 mg Gabapentin (Neurontin Cap(*)) 100 mg PO BID [facility] Last Admin: 06/02/19 10:34 Dose: 100 mg Ondansetron HCl (Zofran Inj*) 4 mg IV Q6H PRN PRN Reason: NAUSEA Last Admin: 06/02/19 08:21 Dose: 4 mg Oxycodone/Acetaminophen (Percocet 5/325 Tab*) 2 tab PO Q4H PRN PRN Reason: PAIN - SEVERE Last Admin: 06/02/19 08:21 Dose: 2 tab Tramadol HCl (Ultram*) 50 mg PO Q6H PRN PRN Reason: PAIN - MODERATE Last Admin: 06/01/19 21:39 Dose: 50 mg Vital Signs - 8 hr 06/02/19 06/02/19 06/02/19 08:00 08:07 08:21 Temperature 97.3 F Pulse Rate 54 Respiratory 20 16 18 Rate Blood Pressure 134/62 (mmHg) O2 Sat by Pulse 99 Oximetry 06/02/19 06/02/19 06/02/19 10:32 10:34 11:22 Temperature 97.2 F Pulse Rate 58 Respiratory 20 20 16 Rate Blood Pressure 136/71 (mmHg) O2 Sat by Pulse 96 Oximetry Oxygen Devices in Use Now: None Appearance: well appearing pleasant woman in good spirits Eyes: No Scleral Icterus Ears/Nose/Mouth/Throat: Clear Oropharnyx, Mucous Membranes Moist Neck: NL Appearance and Movements; NL JVP, Trachea Midline Respiratory: Symmetrical Chest Expansion and Respiratory Effort, Clear to Auscultation Cardiovascular: NL Sounds; No Murmurs; No JVD, RRR Abdominal: NL Sounds; No Tenderness; No Distention, No Hepatosplenomegaly Extremities: - - trace edema b/l and equal Skin: - - breast exam deferred today Neurological: Alert and Oriented x 3 Result Diagrams: 06/01/19 05:30 05/31/19 04:41 Microbiology and Other Data: Microbiology 06/01/19 21:50 Skin and Soft Tissue MRSA/MSSA (PCR - Final Breast Left Mrsa Negative S.aureus Negative Gram Stain - Final 05/30/19 04:50 Urine Culture - Final Urine Klebsiella Pneumoniae Normal Jenni Assess/Plan/Problems-Billing Assessment: 68W presented with a large, fungating Left breast mass growing over several years, now associated with right sided weakness and left buttock numbness. 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 On palliative radiation therapy for 10 days then hospice care. - Patient Problems (1) Breast cancer, left breast Comment: Left breast ductal adenocarcinoma with left axillary lymphadenopathy. Imaging showing metastasis to brain and meninges. Presents with LE weakness. - appreciate Onc and Pall Care recs - she is a minimalist and wants to go for hospice care - currently undergoing palliative radiation therapy for total of 10 days: started 05/30 - on dexamethasone, monitor for SSTI given immunosuppresion - for pain- oxycodone, tramadol, gabapentin. - for nausea- zofran (2) DVT prophylaxis Comment: -scd; pt is high risk but prefers medical interventions only for symptom control (3) DNR (do not resuscitate) Current Visit: Yes Status: Acute Status and Disposition: Inpatient will go to hospice resident after radiation
[2019-06-02] MEDS: traMADol TAB* 50 MG PO PRN (20:17)
[2019-06-03] MEDS: oxyCODONE/Acetamin 5/325 MG* TAB PO PRN ×3 (06:11→20:59)
[2019-06-03] MEDS: Ondansetron ODT TAB* 4 MG SL PRN ×2 (06:12→16:12)
--- NOTE | 2019-06-03 06:45 | PN ---
Subjective Date of Service: 06/03/19 Interval History: HD 6 on 06/03 No acute overnight events Vitals stable Patient states that she is having dry mouth. She is also having heaviness on her feets and leg more on left side but denies redness and pain. She was counselled on her wound growing bacteria and she agrees on not starting abx given asymptomatic; will notify us if develops fever or uncomfortable. Objective Active Medications: Acetaminophen (Tylenol Adult Liq*) 650 mg PO Q6H PRN PRN Reason: PAIN - MILD Dexamethasone (Decadron Tab*) 16 mg PO DAILY [facility] Last Admin: 06/02/19 10:34 Dose: 16 mg Gabapentin (Neurontin Cap(*)) 100 mg PO BID [facility] Last Admin: 06/02/19 20:16 Dose: 100 mg Ondansetron HCl (Zofran Odt Tab*) 4 mg SL 0700,1600 PRN PRN Reason: NAUSEA/VOMITING Last Admin: 06/03/19 06:12 Dose: 4 mg Oxycodone/Acetaminophen (Percocet 5/325 Tab*) 2 tab PO Q4H PRN PRN Reason: PAIN - SEVERE Last Admin: 06/03/19 06:11 Dose: 2 tab Tramadol HCl (Ultram*) 50 mg PO Q6H PRN PRN Reason: PAIN - MODERATE Last Admin: 06/02/19 20:17 Dose: 50 mg Vital Signs - 8 hr 06/02/19 06/02/19 06/03/19 23:23 23:32 03:21 Temperature 98.0 F 97.2 F Pulse Rate 57 58 Respiratory 18 16 18 Rate Blood Pressure 123/63 125/60 (mmHg) O2 Sat by Pulse 95 94 Oximetry 06/03/19 06:11 Temperature Pulse Rate Respiratory 16 Rate Blood Pressure (mmHg) O2 Sat by Pulse Oximetry Oxygen Devices in Use Now: None Exam: Oxygen Devices in Use Now: None Appearance: well appearing pleasant woman in good spirits Eyes: No Scleral Icterus Ears/Nose/Mouth/Throat: Clear Oropharnyx, Mucous Membranes Moist Neck: NL Appearance and Movements; NL JVP, Trachea Midline Respiratory: Symmetrical Chest Expansion and Respiratory Effort, Clear to Auscultation Cardiovascular: NL Sounds; No Murmurs; No JVD, RRR Abdominal: NL Sounds; No Tenderness; No Distention, No Hepatosplenomegaly Extremities: - - trace edema b/l and equal; no any tenderness Neurological: Alert and Oriented x 3 Result Diagrams: 06/01/19 05:30 05/31/19 04:41 Microbiology and Other Data: Microbiology 06/01/19 21:50 Skin and Soft Tissue MRSA/MSSA (PCR - Final Breast Left Mrsa Negative S.aureus Negative Gram Stain - Final 05/30/19 04:50 Urine Culture - Final Urine Klebsiella Pneumoniae Normal Jenni Assess/Plan/Problems-Billing Assessment: 68F presented with a large, fungating Left breast mass growing over several years, now associated with right sided weakness and left buttock numbness. 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 On palliative radiation therapy for 10 days then hospice care.( day 3 on 06/03). - Patient Problems (1) Breast cancer, left breast Current Visit: Yes Status: Acute Code(s): C50.912 - MALIGNANT NEOPLASM OF UNSPECIFIED SITE OF LEFT FEMALE BREAST SNOMED Code(s): 697448323 Comment: -Left breast ductal adenocarcinoma with left axillary lymphadenopathy. -Imaging showing metastasis to brain and meninges. Presents with LE weakness. - appreciate Onc and Pall Care recs - she is a minimalist and wants to go for hospice care - currently undergoing palliative radiation therapy for total of 10 days: started 05/30 - on dexamethasone, monitor for SSTI given immunosuppresion - for pain- oxycodone, tramadol, gabapentin. - for nausea- zofran -for dry mouth- biotene mouth wash (2) Leucocytosis Current Visit: Yes Status: Acute Code(s): D72.829 - ELEVATED WHITE BLOOD CELL COUNT, UNSPECIFIED SNOMED Code(s): 351637994 Comment: -resolved without any intervention: could be from dexamethasone -has fungating mass on left breast with induration and mucopurulent discharge. -wound culture growing klebsiella, E. coli and group c strep -no abx at present (3) Asymptomatic bacteriuria Current Visit: Yes Status: Acute Code(s): R82.71 - BACTERIURIA SNOMED Code (s): 419779413 Comment: -asymptomatic -urine growing klebsiella -no leucocytosis and fever. -monitor for symptoms (4) DVT prophylaxis Current Visit: Yes Status: Acute Code(s): Z29.9 - ENCOUNTER FOR PROPHYLACTIC MEASURES, UNSPECIFIED SNOMED Code(s): 787911171 Comment: -scd; pt is high risk but prefers medical interventions only for symptom control (5) DNR (do not resuscitate) Current Visit: Yes Status: Acute Status and Disposition: Inpatient will go to hospice resident after radiation Attending: Shannan Yanes Attestation Documenting Resident: Dax Fields Supervising Physician: Shannan Yanes Attending/Supervising Physician Comment: Agree with resident findings and plan 68F presented with late complications of undiagnosed stage 4 breast ca, now rec' ing palliative radiation awaiting hospice, consider swing Attestation: This service has been performed in part by a resident under the direction of a teaching physician.I, Shannan Yanes, performed the service, or was physically present during the critical, or aldana portions of the service, furnished by the resident. I participated in the management of the patient.
[2019-06-03] MEDS: Dexamethasone TAB* 4 MG PO SCH (09:49)
[2019-06-03] MEDS: Gabapentin CAP(*) 100 MG PO SCH ×2 (09:49→20:59)
[2019-06-03] MEDS: traMADol TAB* 50 MG PO PRN (09:50)
[2019-06-03] MEDS: Oral Rinse (Biotene)(NF) 237 ML or 473 ML ORAL RINSE BTL MT PRN (20:59)
[2019-06-03] MEDS: Polyethylene Glycol 3350* 17 GM PACKET PO PRN (21:00)
[2019-06-04] MEDS: oxyCODONE/Acetamin 5/325 MG* TAB PO PRN (06:13)
[2019-06-04] MEDS: Ondansetron ODT TAB* 4 MG SL PRN (06:14)
[2019-06-04] MEDS: Oral Rinse (Biotene)(NF) 237 ML or 473 ML ORAL RINSE BTL MT PRN (06:14)
[2019-06-04 09:16] VITALS: BP 112/51
[2019-06-04] MEDS: Polyethylene Glycol 3350* 17 GM PACKET PO PRN (10:17)
[2019-06-04] MEDS: Gabapentin CAP(*) 100 MG PO SCH (10:19)
[2019-06-04] MEDS: Dexamethasone TAB* 4 MG PO SCH (10:19)
[2019-06-04] MEDS: traMADol TAB* 50 MG PO PRN (10:20)
--- NOTE | 2019-06-04 21:59 | DS ---
DISCHARGE SUMMARY: DATE OF ADMISSION: 05/30/19 DATE OF DISCHARGE: 06/04/19 DISPOSITION AT THE TIME OF DISCHARGE: Stable to be discharged to swing status at [facility]. She is being moved to swing status. PRIMARY DIAGNOSIS: Metastatic breast cancer with metastasis to brain and drop mets with cauda equina, currently in palliative chemotherapy. SECONDARY DIAGNOSIS: None. MEDICATIONS AT DISCHARGE: 1. Acetaminophen 650 mg p.o. q.6 hours p.r.n. 2. Dexamethasone 16 mg p.o. daily. 3. Gabapentin 100 mg p.o. b.i.d. 4. Ondansetron 4 mg sublingual b.i.d. p.r.n. 5. Biotene 15 mL 5 times daily p.r.n. 6. Oxycodone/acetaminophen 2 tabs p.o. q.4 hours p.r.n. 7. Polyethylene glycol 17 g p.o. daily p.r.n. 8. Tramadol 50 mg p.o. q.6 hours p.r.n. Medication changes during this hospitalization include the addition of all medications as the patient was not on any medications prior to this admission. HISTORY OF PRESENT ILLNESS AND HOSPITAL COURSE: A 68-year-old female with no significant past medical history who presented to the emergency room on after not seen a provider for 3 years with complaint of subacute left breast redness and necrotic lesion. Also she says that she had progressed to having numbness and severe pain on both lower extremities, unsteady gait and some numbness in the right side of her face. In the emergency room, CT was done, which showed large 22 x 22 mm mass in left occipital, parietal and temporal lobes with some mass effect. CT chest with a large mass with irregular margins and retractions of the nipple on the left breast and multiple left axillary enlarged lymph nodes. CT abdomen and pelvis showed 4 mm low attenuation area in the left lower lobe and a large uterine fibroid. She was admitted for presumed stage IV breast cancer with metastasis to brain, spinal cord, and adenopathy. Hospital course by problem is as follows: 1. Breast cancer with distant metastasis. She was seen by Oncology who performed biopsy. Pathology showed breast adenocarcinoma. HER2-maryjane positive 3 + and ER/WI positive. The patient was seen by Palliative Care and in consultation with Palliative Care as well as Oncology, patient elected for minimal treatment and elected to undergo palliative radiation and then be discharged to be domiciled at inpatient hospice. Because of her cord metastasis and brain metastasis, she was started on dexamethasone with some improvement. Pain control was adequately managed with gabapentin, oxycodone, tramadol, and Tylenol and the patient started palliative radiation therapy on and recommended a total of 10 days to be completed on 06/09/19 and she is moved to swing status on 06/04/19. The patient is tolerating diet, ambulating, tolerating radiation therapy and is stable to move to swing status. LABS AND STUDIES DONE DURING THIS HOSPITALIZATION: Last labs were done on 06/01, which showed normal CBC; 05/31/19 showed normal BMP, normal urinalysis. Wound culture was done of the breast mass, which ended up showing Klebsiella E. coli and strep, although the patient did not feel that the infection was worse than baseline with no clear overwhelming deep skin and soft tissue infection, thus antibiotics were held. Imaging done during this hospitalization included brain CT; chest, abdomen, and pelvis CT; lumbar and thoracic spine MRIs and brain MRIs with results as per above. Thoracic spine and lumbar spine did show also distant metastasis as well as brain MRI, which showed lobulated mass abutting the superior surface of the left tentorial leaflet up to 4.3 cm with robust vasogenic edema. ITEMS TO FOLLOW UP ON STATUS POST DISCHARGE: None. The patient is in agreement with palliative radiation and discharge to hospice, which likely will occur on or around 06/10/19. TIME SPENT: Thirty-five minutes were spent on the planning of this discharge with over half of that spent directly at the bedside of the patient, providing direct patient care. Patient is aware that she is being moved to swing status, has no further questions. We will continue to follow from distance. Physical exam done on the day of discharge to be found in daily progress note. [id number]/[facility] #: [id number] MTDD
== END 2019-06-04 12:24 | disposition swing bed (61) | DRG 597 ==
LOC: ED 18:01 → MEDTELE 05-30 04:59
PROVIDERS: ADMIT Internal Medicine; ATTEND Internal Medicine
PROC: 0H9U3ZX Drainage of Left Breast, Percutaneous Approach, Diagnostic (ICD-10-PCS; principal; 2019-05-30)
PROC: D0Y07ZZ Contact Radiation of Brain (ICD-10-PCS; 2019-05-30)
PROC: D0Y67ZZ Contact Radiation of Spinal Cord (ICD-10-PCS; 2019-05-30)
DX: C50.912 Malignant neoplasm of unspecified site of left female breast (principal); G93.6 Cerebral edema; C79.32 Secondary malignant neoplasm of cerebral meninges; C79.31 Secondary malignant neoplasm of brain; C79.51 Secondary malignant neoplasm of bone; C79.49 Secondary malignant neoplasm of other parts of nervous system; R59.0 Localized enlarged lymph nodes; D25.9 Leiomyoma of uterus, unspecified; B96.1 Klebsiella pneumoniae [K. pneumoniae] as the cause of diseases classified elsewhere; B96.20 Unspecified Escherichia coli [E. coli] as the cause of diseases classified elsewhere; B95.5 Unspecified streptococcus as the cause of diseases classified elsewhere; D72.829 Elevated white blood cell count, unspecified; R82.71 Bacteriuria; Z66 Do not resuscitate; Z88.0 Allergy status to penicillin; Z79.52 Long term (current) use of systemic steroids; Z79.899 Other long term (current) drug therapy; Z17.0 Estrogen receptor positive status [ER+]
CPT/HCPCS: 10021; 36415; 70450; 70553; 71260; 72157; 72158; 74177; 77014; 80048; 80053; 81003; 81015; 83605; 83735; 84443; 85025; 85610; 86140; 87070; 87077; 87086; 87186; 87205; 87640; 87641; 88172; 88173; 88305; 88360; 96374; 99223; 99232; 99284; A9270-GY; A9579; G8978-GP-CK; G8979-GP-CI; J1100; J2270; J2405; J8540; Q9967

== ENCOUNTER 2019-06-04 12:32 | Inpatient (IN) | payer MEDICARE ==
[2019-06-04] MEDS ORDERED: Acetaminophen ADULT LIQ* 650 MG/20.3 ML UDC PO PRN (12:37)
--- NOTE | 2019-06-04 12:42 | ADMNOTE ---
Subjective Date of Service: 06/04/19 Interval History: Admission note 68F with no known PMH who presented on 05/29/19 with sequela of newly dx metastatic breast cancer with mets to cord and brain with resultant gait distrubance and neurologic sx. She started pallaitve radiation and will be transferred to hospice facility on discharge. She has done well starting treatment and on 06/04/2019 is transferred to [facility] status. No acute issues or questions in this process. ROS: +Numbness in face and weakness in blt LE, also + for some dry mouth otherwise no CADE vision changes, no chest pain SOB, N/V or diarrhea/constipation , no fevers or chills, pain well managed, no edema, no complaints PMH: None until this point, no surgery Family: As per prior non contributory Social Hx: Social ETOH, no tob or illicits, Health Care Proxy sister Trang Family History: Findings - See HPI Social History: Findings - See HPI Past Medical History: Findings - See HPI Review of Systems - Review of Systems General Comments: As per HPI Objective Active Medications: Acetaminophen (Tylenol Adult Liq*) 650 mg PO Q6H PRN PRN Reason: PAIN - MILD Dexamethasone (Decadron Tab*) 16 mg PO DAILY [facility] Gabapentin (Neurontin Cap(*)) 100 mg PO BID [facility] Multi-Ingredient Mouthwash/Gargle (Biotene Dry Mouth Oral Rinse(Nf)) 15 ml MT FIVE TIMES DAILY PRN PRN Reason: DRY MOUTH Ondansetron HCl (Zofran Odt Tab*) 4 mg SL 0700,1600 PRN PRN Reason: NAUSEA/VOMITING Oxycodone/Acetaminophen (Percocet 5/325 Tab*) 2 tab PO Q4H PRN PRN Reason: PAIN - SEVERE Polyethylene Glycol/Electrolytes (Miralax*) 17 gm PO DAILY PRN PRN Reason: CONSTIPATION Tramadol HCl (Ultram*) 50 mg PO Q6H PRN PRN Reason: PAIN - MODERATE Appearance: Pleasant woman in NAD Eyes: No Scleral Icterus Ears/Nose/Mouth/Throat: NL Teeth, Lips, Gums Respiratory: Clear to Auscultation Cardiovascular: NL Sounds; No Murmurs; No JVD, RRR Abdominal: NL Sounds; No Tenderness; No Distention Lymphatic: No Cervical Adenopathy Extremities: No Edema Skin: - - Wound on L breast clean and dressed Neurological: Alert and Oriented x 3, - - 4/5 strength in dorsiflexion of L leg Assess/Plan/Problems-Billing Assessment: 68F with no known PMH who presented on 05/29/19 with sequela of newly dx metastatic breast cancer with mets to cord and brain with resultant gait distrubance and neurologic sx. She started pallaitve radiation and will be transferred to hospice facility on discharge. She has done well starting treatment and on 06/04/2019 is transferred to [facility] status. - Patient Problems (1) Breast cancer, left breast Current Visit: No Status: Acute Code(s): C50.912 - MALIGNANT NEOPLASM OF UNSPECIFIED SITE OF LEFT FEMALE BREAST SNOMED Code(s): 708954866 Comment: -Left breast ductal adenocarcinoma with left axillary lymphadenopathy. -Imaging showing metastasis to brain and meninges. Presents with LE weakness. -Appreciate Palliative and Oncologic and Rad Onc care -d/c to hospice after 10 days of radiation complete, to be completed on 06/09 -on dexamethasone, monitor for SSTI given immunosuppresion -for pain- oxycodone, tramadol, gabapentin. -for nausea- zofran -for dry mouth- biotene mouth wash (2) DVT prophylaxis Current Visit: No Status: Acute Code(s): Z29.9 - ENCOUNTER FOR PROPHYLACTIC MEASURES, UNSPECIFIED SNOMED Code(s): 989901216 Comment: -scd; pt is high risk but prefers medical interventions only for symptom control (3) DNR (do not resuscitate) Current Visit: No Status: Acute Status and Disposition: As per above, completes radiation 06/09
[2019-06-04] MEDS: oxyCODONE/Acetamin 5/325 MG* TAB PO PRN (13:15)
[2019-06-04] MEDS: CMCS: Oral Rinse (Biotene)(NF) 237 ML or 473 ML ORAL RINSE BTL MT PRN (13:15)
[2019-06-04] MEDS: traMADol TAB* 50 MG PO PRN (15:35)
[2019-06-04] MEDS: Ondansetron ODT TAB* 4 MG SL PRN (15:36)
[2019-06-04] MEDS: Gabapentin CAP(*) 100 MG PO SCH (20:26)
[2019-06-05] MEDS: CMCS: Oral Rinse (Biotene)(NF) 237 ML or 473 ML ORAL RINSE BTL MT PRN ×3 (01:27→23:19)
[2019-06-05] MEDS: traMADol TAB* 50 MG PO PRN ×3 (01:28→17:16)
[2019-06-05] MEDS: Ondansetron ODT TAB* 4 MG SL PRN ×2 (08:04→17:16)
[2019-06-05] MEDS: Dexamethasone TAB* 4 MG PO SCH (08:05)
[2019-06-05] MEDS: Gabapentin CAP(*) 100 MG PO SCH ×2 (08:05→20:48)
[2019-06-05] MEDS: Polyethylene Glycol 3350* 17 GM PACKET PO PRN (08:06)
[2019-06-05] MEDS: oxyCODONE/Acetamin 5/325 MG* TAB PO PRN (20:47)
[2019-06-06] MEDS: Polyethylene Glycol 3350* 17 GM PACKET PO PRN (07:33)
[2019-06-06] MEDS: Ondansetron ODT TAB* 4 MG SL PRN ×2 (07:34→17:31)
[2019-06-06] MEDS: Dexamethasone TAB* 4 MG PO SCH (07:35)
[2019-06-06] MEDS: Gabapentin CAP(*) 100 MG PO SCH ×2 (07:35→20:47)
[2019-06-06] MEDS: traMADol TAB* 50 MG PO PRN (07:35)
[2019-06-06] MEDS: oxyCODONE/Acetamin 5/325 MG* TAB PO PRN (20:46)
[2019-06-07] MEDS: Ondansetron ODT TAB* 4 MG SL PRN ×2 (07:53→15:12)
[2019-06-07] MEDS: traMADol TAB* 50 MG PO PRN ×3 (07:54→23:37)
[2019-06-07] MEDS: Dexamethasone TAB* 4 MG PO SCH (07:54)
[2019-06-07] MEDS: Gabapentin CAP(*) 100 MG PO SCH (07:55)
[2019-06-07] MEDS: CMCS: Oral Rinse (Biotene)(NF) 237 ML or 473 ML ORAL RINSE BTL MT PRN (07:56)
[2019-06-07] MEDS: Polyethylene Glycol 3350* 17 GM PACKET PO PRN (07:56)
--- NOTE | 2019-06-07 09:09 | PN ---
Progress Note - Progress Note Date of Service: 06/07/19 Note: Stopped in to see patient. She is tolerating TT with some fatigue, but still c/ o up to 10/10 pain in her left leg bethany to extreme paresthesias and hypersensitivity. She is only getting 100 mg gabapentin BID. I have increased her dose to 300 mg BID and if this is not adequately relieving, I would increase the dose to 600 BID in a few days. Thanks. Current plan is to transfer patient to [facility] residence IF a bed is available when she completes her radiation on 06/12/19. If no bed is available at the residence, she will got o [facility], if accepted there, with plan to transfer to residence eventually.
[2019-06-07] MEDS: oxyCODONE/Acetamin 5/325 MG* TAB PO PRN ×2 (17:36→22:47)
[2019-06-07] MEDS: Gabapentin CAP(*) 300 MG PO SCH (20:38)
[2019-06-08] MEDS: Dexamethasone TAB* 4 MG PO SCH (08:12)
[2019-06-08] MEDS: Gabapentin CAP(*) 300 MG PO SCH ×2 (08:12→21:23)
[2019-06-08] MEDS: Ondansetron ODT TAB* 4 MG SL PRN (08:13)
[2019-06-08] MEDS: traMADol TAB* 50 MG PO PRN (15:51)
[2019-06-08] MEDS: Polyethylene Glycol 3350* 17 GM PACKET PO PRN (15:51)
[2019-06-08] MEDS: oxyCODONE/Acetamin 5/325 MG* TAB PO PRN (19:50)
[2019-06-09] MEDS: Ondansetron ODT TAB* 4 MG SL SCH ×2 (06:29→15:33)
[2019-06-09] MEDS: Ondansetron ODT TAB* 4 MG SL PRN ×2 (06:49→16:12)
[2019-06-09] MEDS: Dexamethasone TAB* 4 MG PO SCH (08:55)
[2019-06-09] MEDS: Gabapentin CAP(*) 300 MG PO SCH ×2 (08:56→21:03)
[2019-06-09] MEDS: oxyCODONE/Acetamin 5/325 MG* TAB PO PRN ×2 (08:56→19:22)
[2019-06-09] MEDS: CMCS: Oral Rinse (Biotene)(NF) 237 ML or 473 ML ORAL RINSE BTL MT PRN (10:52)
[2019-06-09] MEDS: traMADol TAB* 50 MG PO PRN (11:05)
--- NOTE | 2019-06-09 12:35 | PN ---
Hospitalist Progress Note Date of Service: 06/09/19 Brief progress note: 68F with no known PMH who presented on 05/29/19 with sequela of newly dx metastatic breast cancer with mets to cord and brain with resultant gait distrubance and neurologic sx. She started pallaitve radiation and will be transferred to hospice facility on discharge. She has done well starting treatment and on 06/04/2019 is transferred to swing status Plan for completeing radiatio on 06/12, possibly to hospice IP on 06/13 or to [facility] depending on case mgmt Seen pt today for social visit and to follow up on pain noted by Dr. Cash note -Pain: Well controlled, declines increasing Kamran at this time -Nausea: would like standing Zofran at 6:30AM and 3PM, ordered -Wound: Reports when silver colloid dressing was used it was best, ordered for silvadene and inform to RN that silver colloid dressing most helpful No other issues, visiting with family, orders shifted
[2019-06-09] MEDS ORDERED: Gabapentin CAP(*) 300 MG PO SCH (21:00)
[2019-06-10] MEDS: Ondansetron ODT TAB* 4 MG SL SCH ×2 (06:30→15:43)
[2019-06-10] MEDS: oxyCODONE/Acetamin 5/325 MG* TAB PO PRN ×2 (06:31→17:02)
[2019-06-10] MEDS: Ondansetron ODT TAB* 4 MG SL PRN ×2 (06:59→16:54)
[2019-06-10] MEDS: Gabapentin CAP(*) 300 MG PO SCH ×2 (09:18→20:14)
[2019-06-10] MEDS: Dexamethasone TAB* 4 MG PO SCH (09:18)
[2019-06-10] MEDS: Silver Sulfadiazine 1% 400gm* 1 APPLIC JAR TOPICAL SCH (09:23)
[2019-06-10] MEDS: CMCS: Oral Rinse (Biotene)(NF) 237 ML or 473 ML ORAL RINSE BTL MT PRN (17:02)
[2019-06-10] MEDS: traMADol TAB* 50 MG PO PRN (20:14)
[2019-06-11] MEDS: oxyCODONE/Acetamin 5/325 MG* TAB PO PRN ×2 (03:12→23:34)
[2019-06-11] MEDS: Ondansetron ODT TAB* 4 MG SL SCH ×2 (06:27→15:51)
[2019-06-11] MEDS: Ondansetron ODT TAB* 4 MG SL PRN ×2 (06:59→17:03)
[2019-06-11] MEDS: Dexamethasone TAB* 4 MG PO SCH (10:34)
[2019-06-11] MEDS: Gabapentin CAP(*) 300 MG PO SCH ×2 (10:35→20:43)
[2019-06-11] MEDS: Silver Sulfadiazine 1% 400gm* 1 APPLIC JAR TOPICAL SCH (10:37)
[2019-06-11] MEDS: CMCS: Oral Rinse (Biotene)(NF) 237 ML or 473 ML ORAL RINSE BTL MT PRN (10:37)
[2019-06-11] MEDS: traMADol TAB* 50 MG PO PRN ×2 (11:46→20:43)
--- NOTE | 2019-06-11 18:29 | CONSULT ---
Subjective Date of Service: 06/11/19 Interval History: Ms. Luan Arreguin is a 68 yo female with PMH significant for newly dx metastatic breast cancer (to spinal cord and brain); who presented to the emergency room with complaints bilateral LE pain and numbness. She was noted to have a necrotic lesion to the left breast that she states had been present for while. She was admitted to the hospital for metastatic left breast cancer on 05/30/19. She was admitted under swing bed status while she received palliative radiation therapy. She presented to the hospital with a wound to the left breast. She states she is unsure how long exactly it has been present, but for at least a few years the left breast has been warm with redness and developed into a wound. Currently the wound is being treated with Silvadine and dry dressing BID. Patient seen and examined at bedside. Verbal consent obtained for wound assessment and photography. Family History: Unchanged from Admission Social History: Unchanged from Admission Past Medical History: Unchanged from Admission Review of Systems - Measurements Intake and Output: Intake and Output Last 24 Hours 06/09/19 06/10/19 06/11/19 06/12/19 06:59 06:59 06:59 06:59 Intake Total 520 1290 840 610 Output Total 0 0 300 Balance 520 1290 540 610 Intake: Oral 520 1290 840 610 Output: Urine 0 0 300 Other: Estimated Void Medium Medium Estimated Stool Amount Small # Voids 1 1 2 - Review of Systems Constitutional Symptoms: Negative: Fever, Other - Chills Dermatology: Positive: Other - Wound to left breast Objective Active Medications: Acetaminophen (Tylenol Adult Liq*) 650 mg PO Q6H PRN Reason: PAIN - MILD Dexamethasone (Decadron Tab*) 16 mg PO DAILY [facility] Gabapentin (Neurontin Cap(*)) 300 mg PO BID [facility] Multi-Ingredient Mouthwash/Gargle (Biotene Dry Mouth Oral Rinse(Nf)) 15 ml MT FIVE TIMES DAILY PRN Reason: DRY MOUTH Ondansetron HCl (Zofran Odt Tab*) 4 mg SL 0700,1600 PRN Reason: NAUSEA/VOMITING Ondansetron HCl (Zofran Odt Tab*) 4 mg SL 0630,1530 [facility] Oxycodone/Acetaminophen (Percocet 5/325 Tab*) 2 tab PO Q4H PRN Reason: PAIN - SEVERE Polyethylene Glycol/Electrolytes (Miralax*) 17 gm PO DAILY PRN Reason: CONSTIPATION Silver Sulfadiazine (Silvadine 1% 400 Gm Jar*) 1 applic TOPICAL DAILY [facility] Tramadol HCl (Ultram*) 50 mg PO Q6H PRN Reason: PAIN - MODERATE Vital Signs 06/11/19 06/11/19 14:29 15:41 Temperature 97.4 F Pulse Rate 57 Respiratory 16 18 Rate Blood Pressure 121/53 (mmHg) O2 Sat by Pulse 97 Oximetry Oxygen Devices in Use Now: None Appearance: NAD, sitting up in a chair Ears/Nose/Mouth/Throat: Mucous Membranes Moist Respiratory: Symmetrical Chest Expansion and Respiratory Effort Skin: - - See skin note below Neurological: Alert and Oriented x 3 Additional Lab and Data: Laboratory Tests 05/29/19 05/31/19 06/01/19 21:33 04:41 05:30 WBC 10.7 Hgb 13.1 Hct 38 Plt Count 244 Sodium 138 Potassium 4.1 Chloride 107 Carbon Dioxide 25 BUN 16 Creatinine 0.64 Glucose 122 H Total Protein 6.7 Albumin 4.4 Skin Deviation Note - Skin Deviation Findings Left lateral breast - There is a fungating wound, the open area measures 9 cm x 5.5 cm x 1.6 cm. The wound base is 95 % yellow necrotic tissue and 5 % red granulation tissue. The surrounding tissue is indurated. There is a moderate amount of purulent appearing drainage on the dressing, but difficult to evaluate drainage as there was silvadine ointment applied. There is a slight foul small. There is blanchable erythema on the upper abdomen and left inframammary crease, suspect this is secondary to drainage and irritation from tape. Wound Problem/Plan Assessment: Ms. Luan Arreguin is a 68 yo female with PMH significant for newly dx metastatic breast cancer (to spinal cord and brain); who presented to the emergency room with complaints bilateral LE pain and numbness. She was noted to have a necrotic lesion to the left breast that she states had been present for while. She was admitted to the hospital for metastatic left breast cancer on 05/30/19. She was admitted under swing bed status while she received palliative radiation therapy. She presented to the hospital with a wound to the left breast. 1. Left breast wound, secondary to breast cancer. This has been present for a few years per the patient. Currently the wound is being treated with Silvadine BID. There is a slight foul odor and the dressing is needing to be changed more frequently due to drainage. The patient has chosen palliative care and we will treat the wound as a palliative wound; the goal is not to heal the wound, but rather control drainage and odor. Recommend cleansing the wound with soap and water with DSG changes. Apply silver alginate to the open wound, followed by an ABD pad, change daily (if the drainage decreases, can decrease frequency to every other day or every 3 days). May change the outer dressing more frequently as needed for drainage. 2. Left metastatic breast cancer. Plans for discharge on Hospice after she receives her last radiation treatment on 06/12/19. 3. Obesity. BMI 38.9. 4. Diet. Regular diet. 5. Code Status. DNR. 6. Disposition. SWING, disposition per primary medicine team. TIME SPENT: Time for this wound consultation was 30 minutes and 20 minutes was spent with the patient discussing past medical history and the wound; removing the old dressing; assessing, measuring, and photographing the wound. Is Patient a Wound Clinic Patient: No Attending: Trina Le
[2019-06-12] MEDS: Ondansetron ODT TAB* 4 MG SL PRN ×2 (06:03→15:50)
[2019-06-12] MEDS: Ondansetron ODT TAB* 4 MG SL SCH ×2 (06:33→15:23)
[2019-06-12] MEDS: oxyCODONE/Acetamin 5/325 MG* TAB PO PRN ×2 (06:57→22:19)
[2019-06-12] MEDS: Gabapentin CAP(*) 300 MG PO SCH ×2 (09:43→20:38)
[2019-06-12] MEDS: Dexamethasone TAB* 4 MG PO SCH (09:43)
[2019-06-12] MEDS: Silver Sulfadiazine 1%* 20 GM TOPICAL SCH (17:12)
[2019-06-12] MEDS: traMADol TAB* 50 MG PO PRN (20:38)
[2019-06-13] MEDS: traMADol TAB* 50 MG PO PRN ×2 (03:09→10:02)
[2019-06-13] MEDS: Ondansetron ODT TAB* 4 MG SL PRN (05:56)
[2019-06-13] MEDS: Ondansetron ODT TAB* 4 MG SL SCH (06:23)
[2019-06-13 07:50] VITALS: BP 128/68
[2019-06-13] MEDS: Gabapentin CAP(*) 300 MG PO SCH (07:56)
[2019-06-13] MEDS: Dexamethasone TAB* 4 MG PO SCH (07:57)
[2019-06-13] MEDS: oxyCODONE/Acetamin 5/325 MG* TAB PO PRN (07:57)
[2019-06-13] MEDS: Silver Sulfadiazine 1%* 20 GM TOPICAL SCH (08:01)
--- NOTE | 2019-06-13 10:48 | DS ---
CC: Ida Vealsco MD * DISCHARGE SUMMARY: DATE OF ADMISSION: 06/04/19 DATE OF DISCHARGE: 06/13/19 PRIMARY CARE PROVIDER: Ida Velasco MD. ATTENDING PHYSICIAN: Galen Cook MD * (dictated by CHANTAL Austin). PRIMARY DIAGNOSES: 1. 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 2. Gait disturbance. SECONDARY DIAGNOSIS: None. DISCHARGE MEDICATIONS: [place] Medications: 1. Acetaminophen liquid 650 mg p.o. q.6 hours p.r.n. 2. Dexamethasone 16 mg p.o. daily. 3. Gabapentin 300 mg p.o. b.i.d. 4. Ondansetron 4 mg sublingual 700, 1600 p.r.n. for nausea/vomiting. 5. Biotene dry mouth oral rinse 15 mL 5 times daily p.r.n. for dry mouth. 6. Oxycodone/acetaminophen 5/325 two tabs p.o. q.4 hours p.r.n. for severe pain , MDD 12 tabs. 7. Polyethylene glycol 17 g p.o. daily p.r.n. for constipation. 8. Silver sulfadiazine 1% 1 application topically daily. 9. Tramadol 50 mg p.o. q.6 hours p.r.n. for moderate pain, MDD 4 tabs. HISTORY OF PRESENT ILLNESS/HOSPITAL COURSE: Ms. Luan Arreguin is a 68-year-old female with no significant past medical history who presented to the ER on 05/30 with complaints of left breast redness with open lesion. She was admitted to the hospital from 05/30/19 to 06/04/19. During that time, she was diagnosed with stage IV breast cancer with metastases to brain and spinal cord. Oncology was consulted, biopsy was performed and showed breast adenocarcinoma. Palliative care consult was obtained and the patient elected for minimal treatment, including palliative radiation treatment. The patient was transitioned to swing status while she completed radiation treatment to the brain and lumbosacral spine. Radiation treatment was completed on 06/12/19 and the patient was planned for discharge to hospice care residence on the following day. The patient is seen on the day of discharge. She complains of left leg weakness and pain. She also complains of pain to the groin that is intermittent and described as "shooting pain." She complains of an intermittent frontal headache. She denies left breast pain, but notes that there is still mild amount of drainage that requires once-daily dressing changes. She denies nausea and vomiting at this time and notes that Zofran controls her nausea well. She has no other complaints today. PHYSICAL EXAMINATION: General: Ms. Luan Arreguin is an obese older white female who is sitting at the edge of her bed with her lower extremities at the floor. She is pleasant, cooperative, and in good spirits. She appears to be in no acute distress. HEENT: PERRL. EOMI. Nonicteric sclerae. Hearing is grossly intact. Oral mucous membranes are mildly dry and without lesions. Pharynx is clear. Tongue is at midline. Palate elevates symmetrically. Cardiovascular: Regular rate and rhythm with S1, S2 present. No murmurs, rubs, clicks, or gallops. There is no JVD. There is no peripheral edema. Pulmonary: Symmetrical chest expansion without use of accessory muscles. Clear to auscultation bilaterally without rhonchi, wheeze, rales. Abdomen: Obese. Bowel sounds in all quadrants. Soft, nontender to palpation. Musculoskeletal: Upper extremities with full range of motion, 5/5 strength that is equal. [employer] Tender strength is equal. Bilateral lower extremities 4/4 strength, left appears weaker than right. There is tenderness to palpation throughout the entire lower legs bilaterally. Neurologic: The patient is awake. She is alert and oriented x3. Cranial nerves II through XII are grossly intact. Vital Signs: Temperature 97.0 temporal, heart rate 56, respiratory rate 20, oxygen saturation 98% on room air, blood pressure 126/68. DISCHARGE PLAN: Ms. Luan Arreguin will be discharged to hospice care residence. CONDITION: Stable. DIET: Regular. ACTIVITY: As tolerated. DISCHARGE INSTRUCTIONS: 1. Continue symptom management. 2. Consider pantoprazole daily while on steroid medication. 3. Wound management: Wound cleansing with soapy water daily with dressing changes daily. Silver alginate to open wound and apply ABD pad. Change dressing at least daily, more frequently if increased drainage. EDUCATION: Follow up with hospice provider upon arrival. This is a summarized report of a complex medical history and hospital stay. For further details, please see the entire medical record. TIME SPENT: Approximately 35 minutes were spent on this discharge, greater than half that time was spent [id number] with the patient discussing discharge plans and instructions. CHANTAL RAMOS [id number]/[facility] #: [id number] [facility]
== END 2019-06-13 10:13 | disposition hospice, inpatient (51) | DRG 55 ==
LOC: MEDTELE 12:32
PROVIDERS: ADMIT Internal Medicine; ATTEND Internal Medicine
PROC: D0Y07ZZ Contact Radiation of Brain (ICD-10-PCS; principal; 2019-06-05)
PROC: D0Y67ZZ Contact Radiation of Spinal Cord (ICD-10-PCS; 2019-06-05)
DX: C79.49 Secondary malignant neoplasm of other parts of nervous system (principal); C79.31 Secondary malignant neoplasm of brain; C50.912 Malignant neoplasm of unspecified site of left female breast; E66.9 Obesity, unspecified; Z66 Do not resuscitate; R11.0 Nausea; S21.002A Unspecified open wound of left breast, initial encounter; R68.2 Dry mouth, unspecified; G89.3 Neoplasm related pain (acute) (chronic); Z68.38 Body mass index [BMI] 38.0-38.9, adult; Z28.21 Immunization not carried out because of patient refusal
CPT/HCPCS: A9270-GY; G8978-GP-CK; G8979-GP-CJ; J8540